=== PATIENT | female | born 1985 | race Caucasian/White ===

== ENCOUNTER 2023-10-14 14:30 | Emergency (ER) | payer BC ==
[2023-10-14 15:29] LABS: BASOPHILS PERCENT AUTO 0.3 % (0.0-1.0); EOSINOPHILS PERCENT AUTO 0.3 % (0.0-6.0); HEMATOCRIT 38.3 % (37.0-47.0); HEMOGLOBIN 13.7 gm/dl (12.0-16.0); IMMATURE GRAN ABSOLUTE AUTO 0.05 K/mm3 (0.00-0.05); IMMATURE GRAN PERCENT AUTO 0.4 % (0.0-0.4); LYMPHOCYTES PERCENT AUTO 25.8 % (24.0-44.0); MEAN CORPUSCULAR HGB CONC 35.8 g/dl (32.0-36.0); MEAN CORPUSCULAR VOLUME 103.5 fl (83.0-99.0); MEAN PLATELET VOLUME 8.9 fl (9.4-12.3); MONOCYTES ABSOLUTE AUTO 0.8 K/mm3 (0.0-0.8); MONOCYTES PERCENT AUTO 6.9 % (0.0-8.0); NEUTROPHILS ABSOLUTE AUTO 7.8 K/mm3 (1.8-7.7); NEUTROPHILS PERCENT AUTO 66.3 % (41.0-71.0); PLATELET COUNT,PLT 300 K/mm3 (150-400); WHITE BLOOD CELL COUNT,WBC 11.73 K/mm3 (3.9-11.3)
[2023-10-14] MEDS ORDERED: Acetaminophen 325 MG Tab PO ONE (15:47)
[2023-10-14 15:51] LABS: A/G RATIO 0.7 (1-2); ALBUMIN 2.7 g/dl (3.4-5.0); ANION GAP 16.5 (5-15); BILIRUBIN TOTAL 0.8 mg/dL (0.2-1.0); BUN/CREATININE RATIO 6.3 (14-18); CALCIUM 9.2 mg/dL (8.5-10.1); CREATININE 0.8 mg/dL (0.55-1.02); EST CRCL DRUG DOSING (CG) 76.15 mL/min; POTASSIUM,K 3.5 mEq/L (3.5-5.1); PROTEIN TOTAL,TP 6.4 g/dl (6.4-8.2)
[2023-10-14] MEDS ORDERED: Magnesium Sulfate/Water 2 GM in Premix Bag 1 BAG IV ONE (16:07)
[2023-10-14 16:31] LABS: FOLIC ACID 5.3 ng/mL (8.6-58.9)
[2023-10-14] MEDS ORDERED: Folic Acid 1 MG Tab PO ONE (16:45)
[2023-10-14] MEDS ORDERED: Thiamine 100 MG Tab PO ONE (18:03)
== END 2023-10-14 19:16 | disposition home or self-care (01) ==
LOC: JD.ED 14:30
DX: R20.2 Paresthesia of skin (principal); E83.42 Hypomagnesemia; E53.8 Deficiency of other specified B group vitamins; R74.01 Elevation of levels of liver transaminase levels; F17.210 Nicotine dependence, cigarettes, uncomplicated; Z88.1 Allergy status to other antibiotic agents
CPT/HCPCS: 36415; 80053; 82607; 82746; 83540; 83735; 85025; 96365; 96366; 99284; A9270; J3475

== ENCOUNTER 2023-11-12 16:48 | Emergency (ER) | payer BC ==
[2023-11-12] MEDS: Gabapentin 100 MG Cap PO ONE (17:20)
[2023-11-12 17:30] LABS: BASOPHILS PERCENT AUTO 0.6 % (0.0-1.0); EOSINOPHILS PERCENT AUTO 0.6 % (0.0-6.0); HEMATOCRIT 42.7 % (37.0-47.0); HEMOGLOBIN 14.9 gm/dl (12.0-16.0); IMMATURE GRAN ABSOLUTE AUTO 0.03 K/mm3 (0.00-0.05); IMMATURE GRAN PERCENT AUTO 0.4 % (0.0-0.4); LYMPHOCYTES ABSOLUTE AUTO 3.1 K/mm3 (1.0-4.8); MEAN CORPUSCULAR HEMOGLOBIN 35.5 pg (28.0-32.0); MEAN CORPUSCULAR HGB CONC 34.9 g/dl (32.0-36.0); MEAN CORPUSCULAR VOLUME 101.7 fl (83.0-99.0); MONOCYTES ABSOLUTE AUTO 0.7 K/mm3 (0.0-0.8); MONOCYTES PERCENT AUTO 10.6 % (0.0-8.0); NEUTROPHILS ABSOLUTE AUTO 2.7 K/mm3 (1.8-7.7); NEUTROPHILS PERCENT AUTO 40.8 % (41.0-71.0); PLATELET COUNT,PLT 319 K/mm3 (150-400); WHITE BLOOD CELL COUNT,WBC 6.68 K/mm3 (3.9-11.3)
[2023-11-12 17:52] LABS: A/G RATIO 0.7 (1-2); ALANINE AMINOTRANSFERASE,ALT 99 U/L (14-59); ALBUMIN 2.5 g/dl (3.4-5.0); ALKALINE PHOSPHATASE 105 U/L (46-116); ANION GAP 14.7 (5-15); ASPARTATE AMNIOTRANSFERASE,AST 117 U/L (15-37); BILIRUBIN TOTAL 0.4 mg/dL (0.2-1.0); BLOOD UREA NITROGEN,BUN 3 mg/dL (7-18); C-REACTIVE PROTEIN <0.2 mg/dL (<1.0); CALCIUM 8.4 mg/dL (8.5-10.1); CARBON DIOXIDE,CO2 31 mEq/L (21-32); CHLORIDE,CL 100 mEq/L (98-107); CREATININE 0.5 mg/dL (0.55-1.02); EST CRCL DRUG DOSING (CG) 127.43 mL/min; ESTIMATED GFR 124 mL/min (>60); GLUCOSE RANDOM 112 mg/dL (70-99); MAGNESIUM 1.1 mg/dL (1.8-2.4); POTASSIUM,K 2.7 mEq/L (3.5-5.1); SODIUM,NA 143 mEq/L (136-145)
[2023-11-12] MEDS: Magnesium Sulfate/Water 2 GM in Premix Bag 1 BAG IV ONE (18:29)
[2023-11-12] MEDS: Potassium Chloride 20 MEQ Tab.ER PO ONE (18:31)
[2023-11-12] MEDS: Sodium Chloride 0.9% 10 ML Syringe FLUSH PRN (18:40)
[2023-11-12] MEDS: DULoxetine 30 MG Cap PO ONE (18:40)
[2023-11-12] MEDS: Potassium Chloride 10 MEQ in Premix Bag 1 BAG IV SCH (19:23)
[2023-11-12] MEDS: Ibuprofen 800 MG Tab PO ONE (19:33)
[2023-11-12] MEDS: Acetaminophen 325 MG Tab PO ONE (19:33)
[2023-11-12] MEDS: Sodium Chloride 0.9% 1,000 ML IV SCH (19:33)
== END 2023-11-12 20:10 | disposition left against medical advice (07) ==
LOC: JD.ED 16:48
DX: M79.7 Fibromyalgia (principal); G90.09 Other idiopathic peripheral autonomic neuropathy; E87.6 Hypokalemia; E83.42 Hypomagnesemia
CPT/HCPCS: 36415; 80053; 83735; 85025; 86140; 96365; 96366; 96368; 99284; A9270; J3475; J3480; J3490; J7030; 99283